=== PATIENT | male | born 1980 ===

== ENCOUNTER 2017-08-03 18:28 | Emergency (ER) | payer MEDICAID, OTHER ==
[2017-08-03 18:34] VITALS: BP 116/76; PULSE 78; RESP 16; TEMP 97.9; O2SAT 98
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
== END 2017-08-03 20:22 | disposition home or self-care (01) ==
LOC: H.ER 18:28
DX: M79.604 Pain in right leg (principal); V03.10XA Pedestrian on foot injured in collision with car, pick-up truck or van in traffic accident, initial encounter; Y92.410 Unspecified street and highway as the place of occurrence of the external cause